=== PATIENT | male | born 1985 | race African-American/Black ===

== ENCOUNTER 2021-10-12 17:19 | Emergency (ER) | payer BC ==
[2021-10-13 18:30] LABS: SARS-CoV-2 PCR by NAA DETECTED (NotDetected)
== END 2021-10-12 18:13 | disposition home or self-care (01) ==
LOC: CSHERS 17:19
DX: U07.1 COVID-19 (principal); R11.0 Nausea; J45.909 Unspecified asthma, uncomplicated; F17.210 Nicotine dependence, cigarettes, uncomplicated
CPT/HCPCS: 99284; U0003; U0005

== ENCOUNTER 2023-09-13 02:39 | Emergency (ER) | payer BC, SELFPAY ==
[2023-09-13] MEDS ORDERED: Acetaminophen 500 MG TAB ONE (03:04)
[2023-09-13] MEDS ORDERED: Ibuprofen 200 MG TAB ONE (03:04)
[2023-09-13] MEDS ORDERED: Oxymetazoline HCl 0.05% ( 15 ML ) ONE (03:04)
== END 2023-09-13 03:12 | disposition home or self-care (01) ==
LOC: CSHERS 02:39
DX: H92.01 Otalgia, right ear (principal); H69.90 Unspecified Eustachian tube disorder, unspecified ear; J06.9 Acute upper respiratory infection, unspecified; F17.210 Nicotine dependence, cigarettes, uncomplicated
CPT/HCPCS: 99282